=== PATIENT | female | born 1965 | race Caucasian/White ===

== ENCOUNTER 2018-07-07 20:38 | Emergency (ER) | payer OTHER ==
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
[2018-07-07] MEDS ORDERED: Ketorolac Tromethamine 30 MG/ML VIAL ONE (22:01)
[2018-07-07] MEDS ORDERED: Acetaminophen 325 MG TAB ONE (22:01)
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
== END 2018-07-07 22:43 | disposition home or self-care (01) ==
LOC: NAV ERS 20:38
DX: S16.1XXA Strain of muscle, fascia and tendon at neck level, initial encounter (principal); S39.012A Strain of muscle, fascia and tendon of lower back, initial encounter; Z87.891 Personal history of nicotine dependence; V43.52XA Car driver injured in collision with other type car in traffic accident, initial encounter
CPT/HCPCS: 71045; 72131; 96374; J1885